=== PATIENT | female | born 1955 | race Caucasian/White ===

== ENCOUNTER → 2018-11-14 | Outpatient (CLI) | payer OTHER, SELFPAY ==
[2018-11-14 08:13] LABS: Hematocrit 40.1 % (37-47); Mean Corp Hgb Conc 32.4 g/dL (32-36); Mean Corpuscular Hgb 31.7 pg (27.0-32.0); Mean Corpuscular Volume 97.8 fL (81-99); Mean Platelet Vol. 9.4 fl (6.2-12.0); Platelet Count 311 K/mm3 (150-450); RBC Distribution Width CV 13.2 % (11.6-14.6); White Blood Count 6.6 K/mm3 (4.4-11.0)
[2018-11-14 09:04] LABS: Anion Gap 6 (5-15); BUN 19 mg/dL (7-18); BUN/Creat Ratio 19.9 RATIO (10-20); Chloride 107 mmol/L (98-107); Cholesterol 143 mg/dL (200); Creatinine, Serum 0.96 mg/dL (0.55-1.02); EST Glomerular Filtration Rate 63 mL/min (>60); Est Glom Filt Rate - Afr Amer 77 mL/min (>60); Glucose 103 mg/dL (74-106); High Density Lipoprotein 54 mg/dL; Sodium Level 140 mmol/L (136-145); Triglycerides 225 mg/dL; Very Low Density Lipoprotein 45 mg/dL (5-40)
== END | disposition home or self-care (01) ==
DX: I10 Essential (primary) hypertension (principal); E78.5 Hyperlipidemia, unspecified; Z79.899 Other long term (current) drug therapy
CPT/HCPCS: 36415; 80048; 80061; 85027

== ENCOUNTER → 2019-12-03 08:21 | Outpatient (CLI) | payer OTHER, SELFPAY ==
[2019-12-03 09:13] LABS: Hematocrit 40.5 % (37-47); Mean Corp Hgb Conc 32.1 g/dL (32-36); Mean Corpuscular Hgb 30.9 pg (27.0-32.0); Mean Corpuscular Volume 96.2 fL (81-99); Mean Platelet Vol. 9.4 fl (6.2-12.0); Platelet Count 331 K/mm3 (150-450); RBC Distribution Width CV 13.2 % (11.6-14.6); RBC Distribution Width SD 46.6 fl (35.1-43.9); Red Blood Count 4.21 M/mm3 (4.2-5.4); White Blood Count 6.3 K/mm3 (4.4-11.0)
[2019-12-03 09:44] LABS: Hemoglobin A1c 5.7 % (3.8-5.6)
[2019-12-03 09:51] LABS: ALB/GLOB Ratio 1.1 RATIO (0.9-2.4); AST(SGOT) 22 U/L (15-37); Alanine Aminotransfer ALT/SGPT 35 U/L (13-56); Albumin, Serum 3.8 g/dL (3.2-5.0); Alkaline Phosphatase 64 U/L (45-117); Anion Gap 6 (5-15); BUN 17 mg/dL (7-18); Chloride 103 mmol/L (98-107); Cholesterol 143 mg/dL (200); Creatinine, Serum 0.94 mg/dL (0.55-1.02); EST Glomerular Filtration Rate 64 mL/min (>60); Est Glom Filt Rate - Afr Amer 77 mL/min (>60); Globulin 3.6 g/dL (2.2-4.2); Glucose 107 mg/dL (74-106); High Density Lipoprotein 62 mg/dL; Potassium 3.7 mmol/L (3.5-5.1); Protein, Total 7.4 g/dL (6.4-8.2); Sodium Level 139 mmol/L (136-145); Triglycerides 138 mg/dL; Very Low Density Lipoprotein 28 mg/dL (5-40)
== END ==
DX: I10 Essential (primary) hypertension (principal); E78.5 Hyperlipidemia, unspecified; R73.03 Prediabetes
CPT/HCPCS: 36415; 80053; 80061; 83036; 85027

== ENCOUNTER 2020-06-19 09:13 | Day surgery (SDC) | payer OTHER, SELFPAY ==
[2020-06-13 14:42] VITALS: BMI 28.9
[2020-06-19] MEDS: Lactated Ringers 1,000 ML 100 ML IV (09:39)
[2020-06-19 09:40] VITALS: BP 144/84; PULSE 78; RESP 16; TEMP 36.8; O2SAT 96; BMI 28.3
[2020-06-19 09:56] LABS: Bedside Glucose 109 mg/dL (70-110)
--- NOTE | 2020-06-19 09:59 | HP.PCM_ITS ---
Problem List (1) Colonic polyp Status: Acute Qualifiers: Colon polyp type: unspecified Colon location: unspecified part of colon Qualified Code(s): K63.5 - Polyp of colon (2) Dysphagia Status: Acute Qualifiers: Dysphagia type: unspecified Qualified Code(s): R13.10 - Dysphagia, unspecified History and Physical Date of Admission: 06/19/20 Intake Vital Signs 06/13/20 Height 5 ft 2 in 06/13/20 Weight: 158 lb 06/13/20 BMI 28.9 06/13/20 BP 136/84 H 06/13/20 Blood Pressure Location Rt brachial 06/13/20 Position Sitting 06/13/20 Respiration 16 06/13/20 Pulse 69 06/13/20 Pulse Source Monitor 06/13/20 Temp 97.8 F 06/13/20 Temp Source Temporal 06/13/20 Pulse Oximetry (%) 99 06/13/20 Oxygen Delivery Method room air Intake Visit Reasons: SCHATZKI RING/ EGD [employer] Required: No Is patient in pain?: No Allergies No Known Allergies Allergy (Verified 06/13/20 14:43) Medications amlodipine 5 mg tablet 5 mg PO DAILY 06/13/20 [History Confirmed 06/13/20] atenolol 100 mg tablet 100 mg PO DAILY 06/13/20 [History Confirmed 06/13/20] atorvastatin 40 mg tablet 40 mg PO DAILY 06/13/20 [History Confirmed 06/13/20] losartan 100 mg-hydrochlorothiazide 12.5 mg tablet 1 tablet PO DAILY 06/13/20 [History Confirmed 06/13/20] metformin 500 mg tablet 500 mg PO DAILY 06/13/20 [History Confirmed 06/13/20] omeprazole 20 mg tablet,delayed release 20 mg PO DAILY #60 tablet 06/13/20 [Rx] [facility] Medical History (Updated 06/13/20 @ 14:[address] Jon Springer MD) History of esophageal dilatation (Acute) Sleep apnea (Acute) Hyperlipidemia (Acute) Metabolic syndrome (Acute) Menopause (Acute) Hypertension (Chronic) Surgical History (Updated 06/13/20 @ 14:40 by Salome Whitten) Hx of colonoscopy (Acute) Hx of blepharoplasty (Acute) History of (Acute) Family History (Updated 06/13/20 @ 14:41 by Salome Whitten) Father Parkinson disease Prostate cancer Hypertension Brother Heart disease Hypertension Sister Breast cancer Thyroid cancer Social History (Updated 06/13/20 @ 14:[address] Jon Springer MD) Smoking Status: Never smoker second hand exposure: No alcohol intake: current alcohol intake frequency: holidays/special occasions only substance use type: does not use caffeine: Yes what type of physical activity do you participate in: none frequency: does not exercise HPI HPI HPI: RAHAT JAUREGUI, is a 64 F who presents to the office today for HPI HPI Surgical H&P: Yes HPI: RAHAT JAUREGUI, is a 64 F who presents to the office today for dysphagia. The patient reports having esophageal dilation a few years ago due to dysphagia. She says at that time she had a Schatzki's ring which required dilation. Patient currently says that she has been having dysphagia symptoms recently and had regurgitation and vomiting recently. Patient says this usually happens with meat. The patient is not currently on a PPI. ROS General General: No weight change or fatigue HEENT HEENT: Yes difficulty swallowing Cardio Cardiovascular: No murmur, pacemaker, heart disease, atrial fibrillation, high blood pressure, heart attack, heart stent, palpitations, shortness of breat with exertion or chest pain Psych Psychiatric: No depression or anxiety Resp Respiratory: No shortness of breath, No sleep apnea, No cough, No COPD, No asthma, No emphysema, No wheezing Gastro Gastrointestinal: No abdominal pain, No nausea or vomiting, No diarrhea, No constipation, No blood in stool, Yes acid reflux, No hemorrhoids, No ulcers, No gallbladder problem, No black,tarry stools Additional Details: Dysphagia Ivan Hematologic: No blood thinners Exam Const General: cooperative Orientation: alert, oriented x3 Resp Effort & Inspection: normal respiratory effort Auscultation: clear to auscultation bilaterally Cardio Rate: regular rate Rhythm: regular rhythm Heart Sounds: no murmurs GI Inspection: non-distended Palpation: soft, nontender Assessment & Plan Problems 1. Esophageal dysphagia R13.10 Plan The patient has dysphagia and a history of acid reflux. I will start the patient on a PPI and plan for EGD with dilation. I explained endoscopy in detail to the patient. I explained the risks including but not limited to stroke or heart attack with anesthesia, perforation of the GI tract, bleeding, infection. I discussed the increased risk of perforation due to balloon dilation. I explained that any of these could necessitate further emergency surgery. The patient understands and all questions were answered sufficiently. The patient wishes to proceed with procedure. The patient also believes she had a colonoscopy in 2018 but it may have been longer. She is going to check her records. If she had a colonoscopy more than 5 years ago she is due for repeat colonoscopy as they did find polyps on her last colonoscopy. If her colonoscopy was over 5 years ago I will schedule her for colonoscopy at the same time. Jon Springer MD Pager: [facility] [address] [place] [address], [address] [place] [address] I have re-examined the patient. There are no clinical changes since date of exam. Office:
[2020-06-19 10:56] VITALS: BP 100/72; BP 144/84; PULSE 83; RESP 16; TEMP 36.4; O2SAT 94
--- NOTE | 2020-06-19 10:56 | OP.EGD_ITS ---
Patient Name: Joanne Chopra Procedure Date: 06/19/2020 10:13 AM Date of : 1955 Age: 64 Procedure: Upper GI endoscopy Indications: Dysphagia Providers: Jon Springer MD Referring MD: Lady Talbot Medicines: Monitored Anesthesia Care Patient Profile: This is a 64 year old female. Refer to note in patient chart for documentation of history and physical. Complications: No immediate complications. Estimated blood loss: Minimal. Procedure: Pre-Anesthesia Assessment: - Prior to the procedure, a History and Physical was performed, and patient medications and allergies were reviewed. The patient's tolerance of previous anesthesia was also reviewed. The risks and benefits of the procedure and the sedation options and risks were discussed with the patient. All questions were answered, and informed consent was obtained. Prior Anticoagulants: The patient has taken no previous anticoagulant or antiplatelet agents. After reviewing the risks and benefits, the patient was deemed in satisfactory condition to undergo the procedure. After obtaining informed consent, the endoscope was passed under direct vision. Throughout the procedure, the patient's blood pressure, pulse, and oxygen saturations were monitored continuously. The gastroscope was introduced through the mouth, and advanced to the second part of duodenum. The upper GI endoscopy was accomplished without difficulty. The patient tolerated the procedure well. Scope In: 10:31:08 AM Scope Out: 10:37:21 AM Total Procedure Duration Time 0 hours 6 minutes 13 seconds Findings: One benign-appearing, intrinsic stenosis was found at the gastroesophageal junction. This stenosis was moderately severe (circumferential scarring or stenosis; an endoscope may pass) and measured 9 mm (inner diameter). The stenosis was traversed. A TTS dilator was passed through the scope. Dilation with a 12-13.5-15 mm balloon dilator was performed to 15 mm. The dilation site was examined following endoscope reinsertion and showed moderate improvement in luminal narrowing. Estimated blood loss was minimal. The examined duodenum was normal. The stomach was normal. Impression: - Benign-appearing esophageal stenosis. Dilated. - Normal examined duodenum. - Normal stomach. - No specimens collected. Recommendation: - Discharge patient to home. - Soft diet for 2 days. - Continue present medications. Procedure Code(s): --- Professional --- 89622, Esophagogastroduodenoscopy, flexible, transoral; with transendoscopic balloon dilation of esophagus (less than 30 mm diameter) Diagnosis Code(s): --- Professional --- K22.2, Esophageal obstruction R13.10, Dysphagia, unspecified CPT copyright 2017 [employer]. All rights reserved. The codes documented in this report are preliminary and upon design draftsman review may be revised to meet current compliance requirements. Jon Springer MD 06/19/2020 10:55:22 AM This report has been signed electronically. Number of Addenda: 0 Note Initiated On: 06/19/2020 10:13 AM
--- NOTE | 2020-06-19 10:56 | OP.CCLET_ITS ---
06/19/2020 Morenafranky Talbot Re : Upper GI endoscopy procedure for Joanne Chopra Dear Antione This procedure was performed on June. My impressions and recommendations are as follows: Impressions : - Benign-appearing esophageal stenosis. Dilated. - Normal examined duodenum. - Normal stomach. - No specimens collected. Recommendations : - Discharge patient to home. - Soft diet for 2 days. - Continue present medications. My findings are described in the full procedure note, which is enclosed. If I can be of further assistance, please feel free to contact me at Doctor phone number(s): , Work: . Sincerely, Jon Springer MD 06/19/2020 10:55:22 AM This report has been signed electronically.
--- NOTE | 2020-06-19 10:57 | OP.CCLET_ITS ---
06/19/2020 Lady Talbot Re : Colonoscopy procedure for Joanne Chopra Dear Antione This procedure was performed on June. My impressions and recommendations are as follows: Impressions : - The entire examined colon is normal on direct and retroflexion views. - No specimens collected. Recommendations : - Discharge patient to home. - Soft diet for 2 days. - Continue present medications. - Repeat colonoscopy in 10 years for screening purposes. My findings are described in the full procedure note, which is enclosed. If I can be of further assistance, please feel free to contact me at Doctor phone number(s): , Work: . Sincerely, Jon Springer MD 06/19/2020 10:56:48 AM This report has been signed electronically.
--- NOTE | 2020-06-19 10:57 | OP.COLON_ITS ---
Patient Name: Joanne Chopra Procedure Date: 06/19/2020 10:40 AM Date of : 1955 Age: 64 Procedure: Colonoscopy Indications: High risk colon cancer surveillance: Personal history of adenoma less than 10 mm in size Providers: Jon Springer MD Referring MD: Lady Talbot Medicines: Monitored Anesthesia Care Patient Profile: This is a 64 year old female. Refer to note in patient chart for documentation of history and physical. Last Colonoscopy: 5 years ago. Complications: No immediate complications. Procedure: Pre-Anesthesia Assessment: - Prior to the procedure, a History and Physical was performed, and patient medications and allergies were reviewed. The patient's tolerance of previous anesthesia was also reviewed. The risks and benefits of the procedure and the sedation options and risks were discussed with the patient. All questions were answered, and informed consent was obtained. Prior Anticoagulants: The patient has taken no previous anticoagulant or antiplatelet agents. After reviewing the risks and benefits, the patient was deemed in satisfactory condition to undergo the procedure. After I obtained informed consent, the scope was passed under direct vision. Throughout the procedure, the patient's blood pressure, pulse, and oxygen saturations were monitored continuously. The colonoscope was introduced through the anus and advanced to the cecum, identified by appendiceal orifice and ileocecal valve. The colonoscopy was performed without difficulty. The patient tolerated the procedure well. The quality of the bowel preparation was good. Scope In: 10:41:22 AM Scope Withdrawal Time 0 hours 6 minutes 3 seconds Scope Out: 10:50:14 AM Total Procedure Duration Time 0 hours 8 minutes 52 seconds Findings: The entire examined colon appeared normal on direct and retroflexion views. Impression: - The entire examined colon is normal on direct and retroflexion views. - No specimens collected. Recommendation: - Discharge patient to home. - Soft diet for 2 days. - Continue present medications. - Repeat colonoscopy in 10 years for screening purposes. Procedure Code(s): --- Professional --- 89922, Colonoscopy, flexible; diagnostic, including collection of specimen(s) by brushing or washing, when performed (separate procedure) Diagnosis Code(s): --- Professional --- Z86.010, Personal history of colonic polyps CPT copyright 2017 [employer]. All rights reserved. The codes documented in this report are preliminary and upon credit cashier review may be revised to meet current compliance requirements. Jon Springer MD 06/19/2020 10:56:48 AM This report has been signed electronically. Number of Addenda: 0 Note Initiated On: 06/19/2020 10:40 AM
[2020-06-19 11:00] VITALS: BP 105/72; BP 144/84; PULSE 84; RESP 16; O2SAT 96
[2020-06-19 11:05] VITALS: BP 110/70; BP 144/84; PULSE 79; RESP 16; O2SAT 98
[2020-06-19 11:10] VITALS: BP 119/71; BP 144/84; PULSE 77; RESP 16; TEMP 36.3; O2SAT 99
[2020-06-19 11:24] VITALS: BP 144/84
== END 2020-06-19 11:34 | disposition home or self-care (01) ==
LOC: EN 09:14 → AC 09:15
PROVIDERS: Visit Provider Surgery
PROC: 0DJD8ZZ Inspection of Lower Intestinal Tract, Via Natural or Artificial Opening Endoscopic (ICD-10-PCS; CPT 45378; principal; 2020-06-19 10:25)
DX: Z12.11 Encounter for screening for malignant neoplasm of colon (principal); G47.30 Sleep apnea, unspecified; E78.5 Hyperlipidemia, unspecified; I10 Essential (primary) hypertension; R13.10 Dysphagia, unspecified; K21.9 Gastro-esophageal reflux disease without esophagitis; Z87.19 Personal history of other diseases of the digestive system; Z79.899 Other long term (current) drug therapy; Z79.84 Long term (current) use of oral hypoglycemic drugs; K22.2 Esophageal obstruction; R73.03 Prediabetes
CPT/HCPCS: 43249; 45378; 82962; J7120; J2405

== ENCOUNTER → 2020-08-29 11:16 | Outpatient (CLI) | payer OTHER, SELFPAY ==
--- NOTE | 2020-08-29 11:20 | BI_ITS ---
MAMMOGRAPHY - BILATERAL SCREENING REASON FOR EXAM: Female, 64 years old. Routine annual screening examination. PERTINENT HISTORY: Sister with breast cancer. Prior left breast biopsy. TECHNIQUE: Digital bilateral breast faith (3D mammographic acquisition) in the CC and MLO projections. 2-D mediolateral oblique (MLO) and craniocaudad (CC) views of both breasts were obtained. CAD: Full Field Digital Mammography with Computer Added Detection was performed. COMPARISON: Comparison is made with prior outside study dated 10/07/2017. FINDINGS: Breast Composition: The breasts are extremely dense, which lowers the sensitivity of mammography. There is a 1.6 cm x 2.1 cm x 2.8 cm slightly lobular breast nodule in the slightly inferior deep portion of the right breast. This is unchanged. Surgical clips are seen in the deep upper lateral portion of the right breast. Tissue clip marker is seen in the upper lateral aspect of the left breast. There is also evidence of a 2.4 cm x 1.8 cm well-defined nodule in the retroareolar region of the right breast. The previously seen 2.1 cm nodule in the deep inferior central portion of the right breast has decreased in size. Stable benign-appearing bilateral axillary lymph nodes. No other significant abnormalities are identified. There has been no significant change since the prior study. BI/SCRN MAMM (CAD)W/FAITH BILAT IMPRESSION: Stable nodular densities in the right breast as described. Correlation with ultrasound is recommended. ASSESSMENT CATEGORY: BIRADS Category 0: Incomplete. Need additional imaging evaluation. A letter regarding these results will be sent to the patient by the facility within 30 days. Approximately 10% of breast cancers are not detected by mammography. A normal mammogram should not delay biopsy of a clinically suspicious abnormality. [id number] Electronically Signed: Cory Alvarez MD at 12:22 EDT , Service support ,
== END ==
DX: Z12.31 Encounter for screening mammogram for malignant neoplasm of breast (principal)
CPT/HCPCS: 77063; 77067

== ENCOUNTER → 2020-09-10 09:17 | Outpatient (CLI) | payer OTHER, SELFPAY ==
--- NOTE | 2020-09-10 09:20 | US_ITS ---
STUDY: ULTRASOUND BREAST - RIGHT REASON FOR EXAM: Female, 64 years old. Abnormal screening mammogram. TECHNIQUE: Axial and longitudinal images of the RIGHT breast were performed with a high resolution ultrasound transducer. # OF IMAGES: 19 COMPARISON: Comparison is made with prior mammogram dated 08/29/2020. FINDINGS: RIGHT Breast: There is a 2.3 cm x 2.1 cm x 1.5 cm heterogeneous solid nodule at the 7 o''clock position of the breast at 4 cm from the nipple. There is evidence of increased perinodular vascularity. There is also evidence of a 2 cm x 2.8 cm x 1.3 cm heterogeneous hypoechoic solid mass at the 11 o''clock position of the breast at 3 cm from the nipple. Biopsy recommended. US/Breast Limited Unilateral IMPRESSION: 2 dominant nodules are seen in the right breast as described. Biopsy of both nodules recommended. ASSESSMENT CATEGORY: BIRADS Category 4: Suspicious - Biopsy Should Be Considered. A letter regarding these results will be sent to the patient by the facility within 30 days. Electronically Signed: Cory Alvarez MD at 10:08 EDT , Service support ,
== END ==
DX: R92.8 Other abnormal and inconclusive findings on diagnostic imaging of breast (principal)
CPT/HCPCS: 76642

== ENCOUNTER → 2020-09-24 11:13 | Outpatient (CLI) | payer OTHER, SELFPAY ==
[2020-09-24 08:27] VITALS: BMI 28.3
--- NOTE | 2020-09-24 08:45 | BRBX_PTH ---
PATIENT: DAYRON JAUREGUI LOC: [facility] U#:[id number] AGE/SX: 69/F ROOM: RE09/24/[address]: Dr. Jon Springer MD : 1955 BED: DIS: SPEC #: [id number] RECD: 09/24/20 11:07 STATUS: CONCETTA ADAMSBethanie #: [id number] KEHINDE: 09/24/20 08:[address]: Jon Springer DEPT: SURGICAL PATHOLOGY RECD BY: Virgilio Purvis Tissues: A - Right breast, NOS B - Right breast, NOS Procedures: Surgery Specimen Level IV HEADER OPERATION: Right breast x2 PRE-OP DIAGNOSIS: Right breast mass x2 TISSUE SUBMITTED: A ? Right breast 11 o?clock, B - Right breast 7 o?clock MICROSCOPIC DIAGNOSIS A. Right breast at 11 o?clock, core biopsy: Densely collagenized stroma with mild duct ectasia. No evidence of malignancy. B. Right breast at 7 o?clock, core biopsy: Densely collagenized stroma with mild duct ectasia. No evidence of malignancy. Focal Banal microcalcifications. AM:clifton 09/25/2020 MICROSCOPIC DESCRIPTION Slides are reviewed. GROSS DESCRIPTION A - Received in fixative is one container labeled with the patient's name and designated right breast 11 o'clock. The specimen consists of multiple elongated fragments of wilder-yellow fibroadipose tissue that in aggregate measure 1.5 x 0.5 x 0.1 cm. The entire specimen is submitted in one cassette. B - Received in fixative is one container labeled with the patient's name and designated right breast 7 o'clock. The specimen consists of multiple elongated fragments of wilder-yellow fibroadipose tissue that in aggregate measure 2 x 0.5 x 0.1 cm. The entire specimen is submitted in one cassette. / SJ:clifton 09/24/20 TC:5 CPT: 07749 x2
== END ==
PROVIDERS: Referring Provider Surgery; Visit Provider Surgery
DX: N63.10 Unspecified lump in the right breast, unspecified quadrant (principal)
CPT/HCPCS: 88305

== ENCOUNTER → 2020-12-17 07:58 | Outpatient (CLI) | payer OTHER, SELFPAY ==
[2020-09-24 08:27] VITALS: BMI 28.3
--- NOTE | 2020-12-17 08:02 | US_ITS ---
STUDY: ULTRASOUND BREAST - RIGHT REASON FOR EXAM: Female, 64 years old. Short interval follow-up TECHNIQUE: Axial and longitudinal images of the RIGHT breast were performed with a high resolution ultrasound transducer. # OF IMAGES: 23 COMPARISON: 09/10/2020 FINDINGS: RIGHT Breast: Heterogeneous background echotexture. At 7 o''clock, 4 cm from the nipple, there is no change in the 23 mm oval parallel indistinct heterogeneous mass with posterior acoustical shadowing and ultrasound-guided vacuum-assisted core biopsy is recommended. At 11 o''clock, 3 cm from the nipple, there is no change in the 28 mm oval parallel indistinct heterogeneous mass with posterior acoustical shadowing and ultrasound-guided vacuum-assisted core biopsy is recommended.: US/Breast Limited Unilateral IMPRESSION: No change in multiple masses in the right breast and ultrasound-guided vacuum-assisted core biopsy is recommended. As an alternative, breast MRI may be useful. ASSESSMENT CATEGORY: BIRADS Category 4: Suspicious - Biopsy Should Be Considered. A letter regarding these results will be sent to the patient by the facility within 30 days. Electronically Signed: Delta Vang MD at 8:41 EDT Tel , Service support ,
== END ==
PROVIDERS: Visit Provider Surgery
DX: N63.10 Unspecified lump in the right breast, unspecified quadrant (principal)
CPT/HCPCS: 76642

== ENCOUNTER → 2020-12-22 08:38 | Outpatient (CLI) | payer OTHER, SELFPAY ==
[2020-12-22 11:30] LABS: Anion Gap 7 (5-15); BUN 18 mg/dL (7-18); BUN/Creat Ratio 18.1 RATIO (10-20); Calcium,Total 9.4 mg/dL (8.5-10.1); Chloride 102 mmol/L (98-107); Cholesterol 253 mg/dL (200); Creatinine, Serum 0.99 mg/dL (0.55-1.02); EST Glomerular Filtration Rate 60 mL/min (>60); Est Glom Filt Rate - Afr Amer 73 mL/min (>60); Glucose 92 mg/dL (74-106); High Density Lipoprotein 57 mg/dL; Potassium 4.1 mmol/L (3.5-5.1); Sodium Level 138 mmol/L (136-145); Triglycerides 241 mg/dL; Very Low Density Lipoprotein 48 mg/dL (5-40)
== END ==
DX: E78.5 Hyperlipidemia, unspecified (principal); I10 Essential (primary) hypertension
CPT/HCPCS: 36415; 80048; 80061

== ENCOUNTER 2021-06-12 10:51 | Outpatient (CLI) | payer OTHER, SELFPAY ==
--- NOTE | 2021-06-12 10:53 | US_ITS ---
STUDY: ULTRASOUND BREAST - RIGHT REASON FOR EXAM: Female, 65 years old. Six-month follow-up for prior right breast biopsy. TECHNIQUE: Axial and longitudinal images of the RIGHT breast were performed with a high resolution ultrasound transducer. # OF IMAGES: 13 COMPARISON: Comparison is made with prior ultrasound examination 12/17/2020. FINDINGS: RIGHT Breast: 2.1 cm x 1.8 cm x 1.2 cm hypoechoic nodule at the 7 o''clock position of the breast at 2 cm from the nipple. This is unchanged. Stable 2.6 cm x 2.5 cm x 1.2 cm hypoechoic solid nodule at 11 o''clock position of the breast are 3 cm from the nipple. US/Breast Limited Unilateral IMPRESSION: Stable examination. ASSESSMENT CATEGORY: BIRADS Category 2: Benign. A letter regarding these results will be sent to the patient by the facility within 30 days. Electronically Signed: Cory Alvarez MD at 12:19 EDT ,
== END 2021-06-12 23:59 | disposition home or self-care (01) ==
LOC: OPUS 10:53
PROVIDERS: Visit Provider Surgery
DX: N63.10 Unspecified lump in the right breast, unspecified quadrant (principal)
CPT/HCPCS: 76642

== ENCOUNTER → 2021-11-26 | Outpatient (CLI) | payer OTHER, SELFPAY ==
[2021-11-26 12:45] LABS: Hematocrit 42.3 % (37-47); Hemoglobin 13.9 g/dL (12.0-15.0); Mean Corp Hgb Conc 32.9 g/dL (32-36); Mean Corpuscular Hgb 31.4 pg (27.0-32.0); Mean Corpuscular Volume 95.5 fL (81-99); Mean Platelet Vol. 9.7 fl (6.2-12.0); Platelet Count 327 K/mm3 (150-450); RBC Distribution Width CV 13.5 % (11.6-14.6); RBC Distribution Width SD 47.8 fl (35.1-43.9); Red Blood Count 4.43 M/mm3 (4.2-5.4); White Blood Count 6.3 K/mm3 (4.4-11.0)
[2021-11-26 13:08] LABS: Hemoglobin A1c 5.7 % (3.8-5.6)
[2021-11-26 13:31] LABS: ALB/GLOB Ratio 1.1 RATIO (0.9-2.4); AST(SGOT) 18 U/L (15-37); Alanine Aminotransfer ALT/SGPT 29 U/L (13-56); Albumin, Serum 3.9 g/dL (3.2-5.0); Alkaline Phosphatase 77 U/L (45-117); Anion Gap 8 (5-15); BUN 21 mg/dL (7-18); BUN/Creat Ratio 21.6 RATIO (10-20); Calcium,Total 9.7 mg/dL (8.5-10.1); Chloride 104 mmol/L (98-107); Cholesterol 192 mg/dL (200); Creatinine, Serum 0.97 mg/dL (0.55-1.02); EST Glomerular Filtration Rate 61 mL/min (>60); Est Glom Filt Rate - Afr Amer 74 mL/min (>60); Globulin 3.7 g/dL (2.2-4.2); Glucose 107 mg/dL (74-106); High Density Lipoprotein 54 mg/dL; Potassium 4.2 mmol/L (3.5-5.1); Protein, Total 7.6 g/dL (6.4-8.2); Sodium Level 140 mmol/L (136-145); Triglycerides 145 mg/dL; Very Low Density Lipoprotein 29 mg/dL (5-40)
== END | disposition home or self-care (01) ==
DX: I10 Essential (primary) hypertension (principal); R73.03 Prediabetes; E78.5 Hyperlipidemia, unspecified
CPT/HCPCS: 36415; 80053; 80061; 83036; 85027

== ENCOUNTER → 2021-12-03 | Outpatient (CLI) | payer OTHER, SELFPAY ==
--- NOTE | 2021-12-03 12:57 | US_ITS ---
STUDY: SUPERFICIAL ULTRASOUND - RIGHT ANTECUBITAL FOSSA REASON FOR EXAM: Female, 65 years old. SWELLING, PALP LUMP ANTECUBITAL FOSSA TECHNIQUE: A superficial ultrasound was performed with real-time and static moody-scale imaging. COMPARISON: None. FINDINGS: There is a 2.3 x 2.1 x 0.6 cm well-circumscribed isoechoic avascular nodule of uncertain etiology possibly representing focal lipoma. This may be further assessed with CT or MRI for more definitive evaluation US/Ext Non Vasc Limited/Soft Tiss IMPRESSION: Focal nodule in the right antecubital fossa possibly lipoma. CT or MRI would be helpful for more definitive evaluation Electronically Signed: Jose Bright MD at 15:51 EDT ,
== END | disposition home or self-care (01) ==
LOC: US 12:55
DX: R22.31 Localized swelling, mass and lump, right upper limb (principal)
CPT/HCPCS: 76882

== ENCOUNTER → 2022-01-12 | Outpatient (CLI) | payer OTHER, SELFPAY ==
--- NOTE | 2022-01-12 10:05 | VDUE_ITS ---
Reason For Study: localized swelling Right Proximal Right jugular vein is spontaneous, widely patent, phasic, with no intraluminal echogenicity noted. Right subclavian vein is spontaneous, widely patent, phasic, with no intraluminal echogenicity noted. Right Lower Arm Right radial vein is compressible. Right ulnar vein is compressible. Right Arm Right axillary vein is spontaneous, patent, phasic, competent, compressible and demonstrates augmentation. Right brachial vein is compressible. Right cephalic vein is compressible. Right basilic vein is compressible. Heterogeneous area at the median cubital space measuring .48 x 1.66 cm. Area is nonvascular. Prelim faxed to Pepito Sanchez PA-C. VL/Venous Duplex US, Unilateral Interpretation Summary No evidence for acute deep venous thrombosis[right] upper extremity with patent and compressible cephalic and basilic veins. 0.48 x 1.66 cm nonvascular subcutaneous mass right median cubital space. Ordering Physician: PEPITO SANCHEZ Referring Physician: PEPITO SANCHEZ Performed By: Jeremy Will RVT ???
== END | disposition home or self-care (01) ==
LOC: CVS 10:04
DX: R22.31 Localized swelling, mass and lump, right upper limb (principal)
CPT/HCPCS: 93971

== ENCOUNTER → 2022-06-23 | Outpatient (CLI) | payer OTHER, SELFPAY ==
[2022-06-23 09:36] LABS: Hematocrit 41.8 % (37-47); Hemoglobin 13.6 g/dL (12.0-15.0); Mean Corp Hgb Conc 32.5 g/dL (32-36); Mean Corpuscular Hgb 31.5 pg (27.0-32.0); Mean Corpuscular Volume 96.8 fL (81-99); Mean Platelet Vol. 9.2 fl (6.2-12.0); Platelet Count 303 K/mm3 (150-450); RBC Distribution Width CV 13.5 % (11.6-14.6); RBC Distribution Width SD 48.6 fl (35.1-43.9); Red Blood Count 4.32 M/mm3 (4.2-5.4); White Blood Count 5.6 K/mm3 (4.4-11.0)
[2022-06-23 09:56] LABS: Hemoglobin A1c 5.7 % (3.8-5.6)
[2022-06-23 10:15] LABS: ALB/GLOB Ratio 1.1 RATIO (0.9-2.4); AST(SGOT) 17 U/L (15-37); Alanine Aminotransfer ALT/SGPT 24 U/L (13-56); Albumin, Serum 3.7 g/dL (3.2-5.0); Alkaline Phosphatase 65 U/L (45-117); Anion Gap 1 (5-15); BUN 20 mg/dL (7-18); BUN/Creat Ratio 21.4 RATIO (10-20); Calcium,Total 9.4 mg/dL (8.5-10.1); Chloride 106 mmol/L (98-107); Cholesterol 252 mg/dL (200); Creatinine, Serum 0.94 mg/dL (0.55-1.02); EST Glomerular Filtration Rate 64 mL/min (>60); Est Glom Filt Rate - Afr Amer 78 mL/min (>60); Globulin 3.4 g/dL (2.2-4.2); Glucose 111 mg/dL (74-106); High Density Lipoprotein 64 mg/dL; Potassium 4.7 mmol/L (3.5-5.1); Protein, Total 7.1 g/dL (6.4-8.2); Sodium Level 139 mmol/L (136-145); Triglycerides 206 mg/dL; Very Low Density Lipoprotein 41 mg/dL (5-40)
== END | disposition home or self-care (01) ==
LOC: LAB 09:14
DX: I10 Essential (primary) hypertension (principal); E78.5 Hyperlipidemia, unspecified
CPT/HCPCS: 36415; 80053; 80061; 83036; 85027

== ENCOUNTER → 2022-07-19 | Outpatient (CLI) | payer OTHER, SELFPAY ==
[2022-07-19 10:30] LABS: Anion Gap 6 (5-15); BUN 15 mg/dL (7-18); BUN/Creat Ratio 17.9 RATIO (10-20); Calcium,Total 9.3 mg/dL (8.5-10.1); Chloride 107 mmol/L (98-107); Creatinine, Serum 0.84 mg/dL (0.55-1.02); EST Glomerular Filtration Rate 73 mL/min (>60); Est Glom Filt Rate - Afr Amer 88 mL/min (>60); Glucose 97 mg/dL (74-106); Potassium 4.1 mmol/L (3.5-5.1); Sodium Level 141 mmol/L (136-145)
== END | disposition home or self-care (01) ==
DX: I10 Essential (primary) hypertension (principal); R73.03 Prediabetes
CPT/HCPCS: 36415; 80048